=== PATIENT | female | born 1995 | race Hispanic/Latino ===

== ENCOUNTER 2021-07-23 01:25 | Emergency (ER) | payer BC, SELFPAY ==
[2021-07-23 02:19] LABS: #Eosinphils 0.2 10x3/uL (0.0-0.5); #Monocytes 1.2 10x3/uL (0.0-1.1); #Neutrophils 5.6 10x3/uL (1.5-8.4); %Basophils 0.2 % (0.0-2.0); %Eosinophils 1.7 % (0.0-6.0); %Lymphocytes 42.8 % (18.0-47.0); %Monocytes 9.3 % (0.0-10.0); %Neutrophils 45.7 % (40.0-75.0); Hemoglobin 13.3 g/dL (12.0-15.5); Mean Corpuscular HGB CONC 35.2 g/dL (32.0-36.0); Mean Corpuscular Volume 82.4 fl (81.6-98.3); Mean Platelet Volume 8.6 fl (7.4-10.4); Platelet Count 358 10x3/uL (150-450); RBC Distribution Width 12.9 % (11.5-14.5); Red Blood Cell (RBC) Count 4.59 10x6/uL (3.90-5.03); White Blood Cell (WBC) Count 12.4 10x3/uL (3.5-10.5)
[2021-07-23 02:20] LABS: Bilirubin Neg (Negative); Blood, Urine 10 (Negative); Clarity Slightly Cloudy (Clear); Glucose, Urine (Dipstick) Normal (Negative); Ketone, Urine Negative (Negative); Leukocyte 25 (Negative); Nitrite Positive (Negative); Protein, Urine (Dipstick) Negative (Neg-Trace); Specific Gravity, Urine 1.015 (1.002-1.036); Urobilinogen Normal mg/dL (Less than 2)
[2021-07-23 02:25] LABS: Bacteria/HPF 4+ HPF (None Seen); RBC/HPF 0-3 HPF (0-3)
[2021-07-23 02:25] LABS: ALT (SGPT) 123 U/L (8-55); AST (SGOT) 127 U/L (5-34); Albumin 4.1 g/dL (3.5-5.0); Alkaline Phosphatase 155 U/L (40-110); Anion Gap 16 mmol/L (10-20); BUN (Urea Nitrogen) 10 mg/dL (7.0-18.7); Bilirubin, Total 0.3 mg/dL (0.2-1.2); Calc. Creatinine Clearance 0 mL/min (70-130); Calcium 9.5 mg/dL (7.8-10.44); Carbon Dioxide 21 mmol/L (22-29); Chloride 103 mmol/L (98-107); Globulin 3.7 g/dL (2.4-3.5); Glucose 111 mg/dL (70-105); Lipase 21 U/L (8-78); Potassium 3.2 mmol/L (3.5-5.1); Protein, Total 7.8 g/dL (6.0-8.3); Sodium 137 mmol/L (136-145)
[2021-07-23 02:39] LABS: Pregnancy Test - Urine (BHCG) Negative (Negative)
[2021-07-23 02:40] LABS: Pregu Control Background? CLEAR/WHITE (CLR/WHITE); Pregu Control Bar Appear? YES (CONTROL BAR); Specific Gravity 1.015 (1.002-1.036)
[2021-07-23] MEDS ORDERED: Ketorolac Tromethamine 30 MG/ML VIAL ONE (03:50)
[2021-07-23 03:56] LABS: MDiff Complete? YES; Platelet Morphology Comment Appears Adequate; RBC Morphology Normal
[2021-07-23 03:59] LABS: Lymphocytes 40 % (21-51); Monocytes 9 % (0-10); Neutrophil 50 % (42-75)
== END 2021-07-23 04:51 | disposition home or self-care (01) ==
LOC: CSHERS 01:25
DX: I88.0 Nonspecific mesenteric lymphadenitis (principal); N39.0 Urinary tract infection, site not specified; R79.89 Other specified abnormal findings of blood chemistry; E03.9 Hypothyroidism, unspecified; Z79.899 Other long term (current) drug therapy
CPT/HCPCS: 74177; 80053; 81003; 81015; 81025; 83690; 85025; 96374; J1885